=== PATIENT | male | born 1995 | race American Indian/Alaskan Native ===

== ENCOUNTER 2017-08-01 10:49 | Day surgery (SDC) | payer OTHER ==
--- NOTE | 2017-08-01 12:50 | Anesthesia Consultation ---
Anesthesia Consult and Med Hx Date of service: 08/01/17 - Airway Anesthetic Teeth Evaluation: Good ROM Head & Neck: Adequate Mental/Hyoid Distance: Adequate Mallampati Class: Class I Intubation Access Assessment: Good - Pulmonary Exam CTA: Yes - Cardiac Exam Cardiac Exam: RRR - Pre-Operative Health Status ASA Pre-Surgery Classification: ASA2 Proposed Anesthetic Plan: General - Additional Comments Anesthesia Medical History Comments: Hemophilia, marijana use, perirectal abcess
--- NOTE | 2017-08-01 12:50 | Anesthesia Day of Surgery ---
Anesthesia Day of Surgery - Day of Surgery Patient Examined: Yes Patient H&P Reviewed: Yes Patient is NPO: Yes
[2017-08-01] MEDS ORDERED: DILAUDID IV PRN (12:52)
[2017-08-01] MEDS ORDERED: NACL 0.9% 1000 ML 1,000 ML IV SCH (13:00)
[2017-08-01 13:33] LABS: Basophils # (Auto) 0.1 K/mm3 (0.0-0.1); Basophils % (Auto) 0.4 % (0.0-1.8); Eosinophils % (Auto) 0.1 % (0.0-4.3); Hematocrit 41.5 % (35.5-45.6); Lymphocytes # (Auto) 2.1 K/mm3 (1.2-5.4); Lymphocytes % (Auto) 12.2 % (13.4-35.0); Mean Corpuscular HGB Conc 34 % (32-34); Mean Corpuscular Hemoglobin 30 pg (28-32); Mean Corpuscular Volume 88 fl (84-94); Monocytes # (Auto) 1.3 K/mm3 (0.0-0.8); Monocytes % (Auto) 7.3 % (0.0-7.3); Platelet Count 216 K/mm3 (140-440); Red Blood Count 4.72 M/mm3 (3.65-5.03); Red Cell Distribution Width 12.6 % (13.2-15.2)
[2017-08-01 13:42] LABS: INR 0.98 (0.87-1.13)
[2017-08-01 13:43] LABS: Partial Thromboplastin Time 49.4 Sec. (24.2-36.6)
[2017-08-01] MEDS ORDERED: [UNRECOGNIZED DRUG - OTHER] IV SCH (14:00)
[2017-08-01] MEDS ORDERED: ANCEF/STERILE WATER 2 GM/20 ML IV NR (14:00)
[2017-08-01] MEDS ORDERED: DILAUDID IV SCH (14:56)
[2017-08-01] MEDS ORDERED: VERSED IV NR (15:00)
[2017-08-01] MEDS ORDERED: DIPRIVAN 10 MG/ML IV ONE (16:27)
[2017-08-01] MEDS ORDERED: DILAUDID ONE (16:27)
[2017-08-01] MEDS ORDERED: XYLOCAINE MPF 2% ONE (16:28)
--- NOTE | 2017-08-01 17:54 | Post Operative Note ---
Pre-op diagnosis: Rt perianal abscess Post-op diagnosis: same Findings: same Procedure: I/D Rt perianal abscess Anesthesia: GETA Surgeon: ROSA WHATLEY Estimated blood loss: minimal Pathology: none Condition: stable Disposition: PACU
--- NOTE | 2017-08-01 17:58 | Discharge Summary ---
Short Stay Discharge Plan Weight Bearing Status: Full Weight Bearing Diet: regular Wound: keep clean and dry (Reinforce with pressure dressings for any oozing through) Follow up with: ABRAM FAIRCHILD MD [Primary Care Provider] - 7 Days ROSA WHATLEY MD [Staff Physician] - 7 Days Prescriptions: Cephalexin 500 mg PO TID #20 capsule oxyCODONE /ACETAMINOPHEN [Percocet 5/325] 1 tab PO Q4HR PRN #30 tab PRN Reason: Pain
--- NOTE | 2017-08-01 17:59 | Discharge Summary ---
Short Stay Discharge Plan Follow up with: ABRAM FAIRCHILD MD [Primary Care Provider] - 7 Days ROSA WHATLEY MD [Staff Physician] - 7 Days Prescriptions: Cephalexin 500 mg PO TID #20 capsule oxyCODONE /ACETAMINOPHEN [Percocet 5/325] 1 tab PO Q4HR PRN #30 tab PRN Reason: Pain
--- NOTE | 2017-08-01 18:17 | Operative Report ---
PREOPERATIVE DIAGNOSIS: Right perianal abscess. POSTOPERATIVE DIAGNOSIS: Right perianal abscess. OPERATIVE PROCEDURE: Incision and drainage of right perianal abscess. ANESTHESIA: General via laryngeal mask. BLOOD LOSS: Minimal. INDICATIONS: A 22-year-old male patient presenting with a recurrent right perianal abscess. The last episode was in April of 2017. He is known hemophilia and he has received 1000 units of factor 8 preoperatively. FINDINGS: Right perianal abscess with a fair amount of purulent material that was drained and sent for culture and sensitivity. DESCRIPTION OF PROCEDURE: After satisfactory induction of general anesthesia, the patient's both legs were placed in lithotomy position. Operative area prepped and draped. A 1.5 cm incision was made and the purulent material was drained out. Culture was sent. Wound cavity irrigated well with saline solution. The edges of the wound were cauterized to prevent any bleeding. It was packed with half inch iodoform packing gauze and under pressure dressings were placed. He tolerated the procedure well. JOB# [id number] JOJON/SIM
[2017-08-01 18:48] VITALS: BP 124/74
--- NOTE | 2017-08-02 16:52 | Post Anesthesia Evaluation ---
- Post Anesthesia Evaluation Patient Participated: Yes Airway Patent: Yes Stable Respiratory Function: Yes Nausea/Vomiting: No Temp > 96.8F: Yes Pain Manageable: Yes Adequeate Hydration: Yes Anesthesia Complications: No Block Receding Appropriately: Not Applicable
== END 2017-08-01 10:50 | disposition home or self-care (01) ==
LOC: OR 10:49
PROVIDERS: ATTEND Surgery
DX: K61.0 Anal abscess (principal); Z98.890 Other specified postprocedural states
CPT/HCPCS: 36415; 46050; 85025; 85610; 85730; 86850; 86900; 86901; 87075; 87116; 87186; J0690; J1170; J2250; J2704; J7030; J7192

== ENCOUNTER 2021-01-13 04:12 | Emergency (ER) | payer SELFPAY ==
[2021-01-13 04:27] VITALS: BP 136/74
--- NOTE | 2021-01-13 05:20 | Emergency Department Report ---
ED ENT HPI - General Chief complaint: Dental/Oral Stated complaint: TOOTHACHE Time Seen by Provider: 01/13/21 04:52 Source: patient Mode of arrival: Ambulatory Limitations: No Limitations - History of Present Illness Initial comments: 25-year-old male woke up this morning with severe dental pain states he has been having some pain to the right side for the past few days but is significantly worsening at this morning. He reports having some swelling but no abnormal taste no bleeding no fevers, chills, sweats. No neck pain no chest pain palpitation no odynophagia or dysphagia. MD complaint: tooth pain -: Gradual Location: tooth # Severity: moderate Quality: aching, dull Consistency: constant Worsens with: none Associated Symptoms: gum swelling, toothache. denies: cough, pain with swallowing, sore throat, discharge from ear, rhinorrhea - Related Data Home Medications Medication Instructions Recorded Confirmed Last Taken Antihemophilic Factor, Hum Rec 1,720 units IV PRN PRN 07/15/13 08/01/17 07/14/13 19:00 [Recombinate] 1720 Previous Rx's Medication Instructions Recorded Last Taken Type cephALEXin [Cephalexin] 500 mg PO TID #20 capsule 08/01/17 Unknown Rx oxyCODONE /ACETAMINOPHEN [Percocet 1 tab PO Q4HR PRN #30 tab 08/01/17 Unknown Rx 5/325] Amoxicillin [Amoxicillin TAB] 875 mg PO BID #20 tablet 01/13/21 Unknown Rx Chlorhexidine Mouthwash [Peridex] 15 ml MM BID #1 bottle 01/13/21 Unknown Rx Lidocaine Viscous 2% 5 ml MM Q3H PRN #120 udc 01/13/21 Unknown Rx traMADoL [Ultram] 50 mg PO Q6HR PRN #20 tablet 01/13/21 Unknown Rx Allergies Allergy/AdvReac Type Severity Reaction Status Date / Time aspirin AdvReac Bleeding Verified 07/15/13 09:18 ED Dental HPI - General Chief complaint: Dental/Oral Stated complaint: TOOTHACHE Time Seen by Provider: 01/13/21 04:52 Source: patient Mode of arrival: Ambulatory Limitations: No Limitations - Related Data Home Medications Medication Instructions Recorded Confirmed Last Taken Antihemophilic Factor, Hum Rec 1,720 units IV PRN PRN 07/15/13 08/01/17 07/14/13 19:00 [Recombinate] 1720 Previous Rx's Medication Instructions Recorded Last Taken Type cephALEXin [Cephalexin] 500 mg PO TID #20 capsule 08/01/17 Unknown Rx oxyCODONE /ACETAMINOPHEN [Percocet 1 tab PO Q4HR PRN #30 tab 08/01/17 Unknown Rx 5/325] Amoxicillin [Amoxicillin TAB] 875 mg PO BID #20 tablet 01/13/21 Unknown Rx Chlorhexidine Mouthwash [Peridex] 15 ml MM BID #1 bottle 01/13/21 Unknown Rx Lidocaine Viscous 2% 5 ml MM Q3H PRN #120 udc 01/13/21 Unknown Rx traMADoL [Ultram] 50 mg PO Q6HR PRN #20 tablet 01/13/21 Unknown Rx Allergies Allergy/AdvReac Type Severity Reaction Status Date / Time aspirin AdvReac Bleeding Verified 07/15/13 09:18 ED Review of Systems ROS: Stated complaint: TOOTHACHE Other details as noted in HPI Comment: All other systems reviewed and negative ED Past Medical Hx - Past Medical History Additional medical history: Hemophilia - Social History Smoking Status: Never Smoker - Medications Home Medications: Home Medications Medication Instructions Recorded Confirmed Last Taken Type Antihemophilic Factor, Hum Rec 1,720 units IV PRN PRN 07/15/13 08/01/17 07/14/13 19:00 History [Recombinate] 1720 cephALEXin [Cephalexin] 500 mg PO TID #20 capsule 08/01/17 Unknown Rx oxyCODONE /ACETAMINOPHEN [Percocet 1 tab PO Q4HR PRN #30 tab 08/01/17 Unknown Rx 5/325] Amoxicillin [Amoxicillin TAB] 875 mg PO BID #20 tablet 01/13/21 Unknown Rx Chlorhexidine Mouthwash [Peridex] 15 ml MM BID #1 bottle 01/13/21 Unknown Rx Lidocaine Viscous 2% 5 ml MM Q3H PRN #120 udc 01/13/21 Unknown Rx traMADoL [Ultram] 50 mg PO Q6HR PRN #20 tablet 01/13/21 Unknown Rx ED Physical Exam - General Limitations: No Limitations General appearance: alert, in no apparent distress - Head Head exam: Present: atraumatic, normocephalic - Eye Eye exam: Present: normal appearance, PERRL, EOMI Pupils: Present: normal accommodation - ENT ENT exam: Present: mucous membranes moist, TM's normal bilaterally, other (Severe dental erosion to the right lower molar region. With some adjacent gi ngival erythema. No abscess is noted. No bleeding.) - Neck Neck exam: Present: normal inspection, full ROM - Respiratory Respiratory exam: Present: normal lung sounds bilaterally. Absent: respiratory distress - Cardiovascular Cardiovascular Exam: Present: regular rate, normal rhythm. Absent: systolic murmur, diastolic murmur, rubs, gallop - GI/Abdominal GI/Abdominal exam: Present: soft, normal bowel sounds - Rectal Rectal exam: Present: deferred - Extremities Exam Extremities exam: Present: normal inspection - Back Exam Back exam: Present: normal inspection - Neurological Exam Neurological exam: Present: alert, oriented X3 - Psychiatric Psychiatric exam: Present: normal affect, normal mood - Skin Skin exam: Present: warm, dry, intact, normal color. Absent: rash ED Course Vital Signs 01/13/21 04:22 Temperature 97.1 F L Pulse Rate 62 Respiratory 16 Rate Blood Pressure 136/74 [Left] O2 Sat by Pulse 100 Oximetry Critical care attestation.: If time is entered above; I have spent that time in minutes in the direct care of this critically ill patient, excluding procedure time. ED Disposition Clinical Impression: Infected dental caries Disposition: HOME / SELF CARE / HOMELESS Is pt being admited?: No Does the pt Need Aspirin: No Condition: Stable Instructions: Dental Abscess, Preventive Dental Care, Adult Prescriptions: Amoxicillin [Amoxicillin TAB] 875 mg PO BID #20 tablet Lidocaine Viscous 2% 5 ml MM Q3H PRN #120 udc PRN Reason: Pain, Moderate (4-6) Chlorhexidine Mouthwash [Peridex] 15 ml MM BID #1 bottle traMADoL [Ultram] 50 mg PO Q6HR PRN #20 tablet PRN Reason: Pain Referrals: [facility] [Outside] - 3-5 Days
[2021-01-13] MEDS ORDERED: ACETAMINOPHEN W/CODEINE 300-30 MG TAB PO ONE (06:19)
== END 2021-01-13 06:24 | disposition home or self-care (01) ==
LOC: ED 04:12
DX: K02.9 Dental caries, unspecified (principal); Z88.6 Allergy status to analgesic agent; Z79.899 Other long term (current) drug therapy
CPT/HCPCS: 99282